=== PATIENT | female | born 1980 | race African-American/Black ===

== ENCOUNTER 2018-01-07 05:13 | Emergency (ER) | payer OTHER ==
[~2018-01-07] VITALS: Ht 160 cm; Wt 101.6 kg
[2018-01-07] MEDS ORDERED: LEVOTHYROXINE (05:28)
[2018-01-07] MEDS ORDERED: PROTONIX40 M4 (05:29)
[2018-01-07] MEDS ORDERED: TOPAMAX50 MG (05:30)
[2018-01-07] MEDS ORDERED: ADIPEX-P37.5 MG (05:31)
[2018-01-07 06:31] LABS: URINE BILIRUBIN NEGATIVE (Negative); URINE BLOOD NEGATIVE (Negative); URINE CLARITY SL CLOUDY; URINE COLOR YELLOW; URINE GLUCOSE-RANDOM NEGATIVE (Negative); URINE KETONES NEGATIVE (Negative); URINE LEUKOCYTES-REFLEX NEGATIVE (Negative); URINE NITRITE-REFLEX NEGATIVE (Negative); URINE PROTEIN NEGATIVE (Negative); URINE SPECIFIC GRAVITY 1.015 (1.005-1.030); URINE UROBILINOGEN 0.2 E.U./dl (0.2-1.0)
[2018-01-07 06:40] LABS: SQUAMOUS 0-3 Few /LPF (0-3)
[2018-01-07 06:41] LABS: AMORPHOUS PHOSPHATES Moderate /LPF (None Seen); BACTERIA-REFLEX 1-9 Few /HPF (None Seen); CASTS None Seen /LPF (None Seen); MUCUS 0-3 Light strn/LPF (None Seen); URINE RBC 0-2 Rare /HPF (0-2); URINE WBC-REFLEX 0-5 Rare /HPF (0-5)
[2018-01-07 07:38] LABS: HEMATOCRIT 34.7 % (37.0-47.0); HEMOGLOBIN 11.1 gm/dL (12.0-15.0); MCH 25.1 pg (26.0-34.0); MCV 78.5 fL (80.0-100.0); MPV 8.1 fl. (7.2-11.1); RBC 4.43 mil/uL (4.20-5.00); RDW-CV 18.4 % (10.5-14.5); WBC 10.1 thou/uL (4.0-11.0)
[2018-01-07 07:44] LABS: CALCIUM 8.6 mg/dL (8.5-10.1); CREATININE 1.1 mg/dL (0.6-1.3); POTASSIUM 3.4 mmol/L (3.5-5.1)
[2018-01-07 07:49] LABS: ALBUMIN 3.4 g/dL (3.4-5.0); TOTAL BILIRUBIN 0.3 mg/dL (<0.1-1.0)
[2018-01-07] MEDS ORDERED: ZOFRAN ODT4 MG PO (08:48)
[2018-01-07] MEDS ORDERED: IBUPROFEN 800800 M1 PO (08:48)
[2018-01-07] MEDS ORDERED: BENTYL 20 MG TA20 M1 PO (08:48)
[2018-01-07] MEDS ORDERED: MIRALAX17 GM PO (08:53)
[2018-01-07 09:06] VITALS: BP 109/61
== END 2018-01-07 09:07 | disposition home or self-care (01) ==
LOC: M.ERS 05:13
PROVIDERS: Emergency Medicine; Emergency Medicine Emergency Medical Services
DX: K59.00 Constipation, unspecified (principal); K21.9 Gastro-esophageal reflux disease without esophagitis; E03.9 Hypothyroidism, unspecified; G43.909 Migraine, unspecified, not intractable, without status migrainosus

== ENCOUNTER 2019-04-05 04:57 | Emergency (ER) | payer OTHER ==
[~2019-04-05] VITALS: Ht 160 cm; Wt 100.2 kg
[~2019-04-05 04:57] MED LIST: ADIPEX-P37.5 MG; BENTYL 20 MG TA20 M1 PO; IBUPROFEN 800800 M1 PO; LEVOTHYROXINE; MIRALAX17 GM PO; PROTONIX40 M4; TOPAMAX50 MG; ZOFRAN ODT4 MG PO
[2019-04-05 05:42] LABS: ABSOLUTE EOSINOPHILS 0.3 thou/uL (0.0-0.7); ABSOLUTE LYMPHOCYTES 2.2 thou/uL (0.8-5.3); ABSOLUTE MONOCYTES 0.7 thou/uL (0.0-1.2); ABSOLUTE NEUTROPHILS 4.8 thou/uL (1.6-8.1); BASOPHILS 0.5 %; EOSINOPHILS 3.2 %; HEMATOCRIT 29.5 % (37.0-47.0); HEMOGLOBIN 9.2 gm/dL (12.0-15.0); MCH 21.4 pg (26.0-34.0); MCHC 31.3 g/dL (28.0-37.0); MCV 68.5 fL (80.0-100.0); MPV 7.4 fl. (7.2-11.1); NUCLEATED RBCS 0 /100WBC; PLATELET COUNT* 431 thou/uL (150-400); POLYS 60.3 %; RDW-CV 18.8 % (10.5-14.5)
[2019-04-05 06:13] LABS: ANION GAP 9 mmol/L (7-16); BUN 6 mg/dL (7-18); CALCIUM 8.3 mg/dL (8.5-10.1); CHLORIDE 105 mmol/L (98-107); CO2 23 mmol/L (21-32); CREATININE 0.9 mg/dL (0.6-1.3); GLUCOSE 85 mg/dL (70-99); POTASSIUM 3.5 mmol/L (3.5-5.1); SODIUM 137 mmol/L (136-145)
[2019-04-05 06:25] LABS: ALBUMIN 3.2 g/dL (3.4-5.0); ALKALINE PHOSPHATASE 96 U/L (46-116); LIPASE 111 U/L (73-393); MAGNESIUM 1.8 mg/dL (1.8-2.4); NT-PRO BRAIN NAT PEPTIDE 112 pg/mL (<300); SGOT 14 U/L (15-37); SGPT 19 U/L (30-65); TOTAL BILIRUBIN 0.3 mg/dL (<0.1-1.0); TOTAL PROTEIN 7.8 g/dL (6.4-8.2); TROPONIN-I LEVEL <0.06 ng/mL (<0.06)
[2019-04-05 06:28] LABS: PLATELET ESTIMATE INCREASED
[2019-04-05 06:31] LABS: HYPOCHROMASIA 2+; MICROCYTES 2+; OVALOCYTES 1+
[2019-04-05 06:32] LABS: POLYCHROMASIA 1+
[2019-04-05 06:33] LABS: ANISOCYTOSIS 2+; POIKILOCYTOSIS 1+
[2019-04-05 06:43] VITALS: BP 146/89
--- NOTE | 2019-04-05 11:52 | EKG ---
[place] [address] ELECTROCARDIOGRAM REPORT Name: VIJAY KRISHNA Room: [facility] ([place], [place])#: [id number] Admission: 04/05/19 Attend Phys: Discharge: 04/05/19 Date of : 84 Report #: [id number] THIS REPORT FOR: //name// [facility] ED Test Date: 2019-04-05 Test Time: 05:01:57 Pat Name: VIJAY KRISHNA Department: Room: Gender: F Purler: ANGELITO : 1980 Requested By: Kai Javier Order Number: [id number] MD: Mick Farrell Measurements Intervals Kane Rate: 90 P: -2 AR: 130 QRS: 41 QRSD: 90 T: 68 QT: 369 QTc: 452 Interpretive Statements Sinus rhythm No previous ECG available for comparison Electronically Signed On 04-05-2019 11:52:03 CDT by Mick Farrell [email or web address] <ELECTRONICALLY SIGNED> By: Mick Farrell MD, [facility] 04/05/19 1152 0501 0501 Mick Farrell MD, FACC /EPI
== END 2019-04-05 06:44 | disposition home or self-care (01) ==
LOC: M.ERS 04:57
PROVIDERS: Family Medicine
DX: G43.909 Migraine, unspecified, not intractable, without status migrainosus (principal); R07.2 Precordial pain; E03.9 Hypothyroidism, unspecified; K21.9 Gastro-esophageal reflux disease without esophagitis; D21.9 Benign neoplasm of connective and other soft tissue, unspecified